=== PATIENT | female | born 1960 | race Asian ===

== ENCOUNTER 2023-08-26 11:26 | Emergency (ER) | payer MEDICAID, SELFPAY ==
[2023-08-26] VITALS (34 sets, daily range): BP systolic 117–180; BP diastolic 57–73; PULSE 77–95; RESP 14–26; TEMP 37.5; O2SAT 97–100; BMI 20.2
--- NOTE | 2023-08-26 11:33 | ED.FALL ---
HPI - Fall General Chief Complaint: Extremity Injury, Upper Stated Complaint: fall Time Seen by Provider: 08/26/23 11:31 History of Present Illness HPI Narrative: 63-year-old woman with a history of hypertension and hyperlipidemia had a mechanical fall while hanging curtains today. She landed on her right elbow with significant pain unable to move her arm after that point. She was neurovascularly intact. She was able to get up and call 911 herself. She describes no other injuries. She has otherwise been healthy and at her baseline with no complaints of recent fevers, cough, chills, chest pain, palpitations, nausea, vomiting, diarrhea, headaches. Related Data Previous Rx's Medication Instructions Recorded oxycodone-acetaminophen 5 mg-325 1 tab PO Q6H PRN pain #14 tabs 08/26/23 mg tablet Allergies Allergy/AdvReac Type Severity Reaction Status Date / Time No Known Drug Allergies Allergy Verified 08/26/23 11:37 Review of Systems Review of Systems Narrative: Pertinent positive and negative findings as per HPI Patient History Medical History Hyperlipidemia Hypertension Social History Smoking Status: Never smoker Exam Initial Vital Signs Initial Vital Signs: Vital Signs Pulse Oximetry 98 08/26/23 11:31 General: Sedated from fentanyl given in route but able to cooperate. Right upper extremity is in a splint. HEENT: Moist mucous membranes, normal sclera with reactive pupils, head is atraumatic, normocephalic Neck: No neck pain Respiratory: Lungs are clear to auscultation, no wheezing no rales no rhonchi. Full and symmetrical air movement Cardiac: Regular rate and rhythm no murmurs no bruits Abdomen: Soft, nontender, good bowel tones, no flank pain, no thoracic or rib pain Skin: Warm and dry, no rashes Neurologic: Grossly neurologically intact with no obvious asymmetries or abnormalities Extremities: Right arm is obviously deformed with excessive pronation and what appears to be dislocated possible fractured elbow. No pain in the shoulder or the wrist Psych: Cooperative, appropriate insight and affect Procedures Orthopedic Joint Reduction Right elbow: Time of procedure: 15:06 Time Out Performed: Yes Side: right Joint Reduction Location: elbow Analgesia: procedural sedation Technique used: traction/counter-traction and direct manipulation Post-reduction neuro exam: intact Post-reduction vascular: intact Post Reduction X-Ray Obtained: Yes Post Reduction X-Ray Results: reduced Splint Applied: Yes Patient Tolerated Procedure: Well Procedural Sedation Time of procedure: 15:07 Consent signed: Yes Time out performed: Yes Indication: fracture/dislocation reduction ASA Class: II Time of Last PO Intake: 09:00 Preparation: awake overnight monitor applied, pulse oximeter, capnometry used, supplemental O2 applied, suction/airway equipment at bedside and IV secured IV Propofol dose (mg): 40 Intraservice time/total sedation time (min): 10 ED Sedation Level: Moderate (Concious) Patient Tolerated Procedure: Well Complications: none Course Orders Ordered: ED Orders 08/26/23 11:37 XR elbow RT min 3V Stat XR wrist RT min 3V Stat 08/26/23 13:57 XR elbow RT min 3V Stat Discontinued Medications Ketorolac Tromethamine (Ketorolac 30 Mg/Ml Vial) 15 mg IV NOW ONE Stop: 08/26/23 14:48 Oxycodone/Acetaminophen (Oxycodone/Acetaminophen 5/325 Tablet) 1 tab PO NOW ONE Stop: 08/26/23 14:48 Propofol (Propofol 200 Mg/20 Ml Vial) 200 mg IV NOW ONE Stop: 08/26/23 12:25 Last Admin: 08/26/23 13:43 Dose: 40 mg Documented By: KHADIJAH Vital Signs Vital signs: Vital Signs - 8 hr 08/26/23 11:31 08/26/23 11:32 08/26/23 11:32 Temperature Pulse Rate 82 Respiratory Rate 20 Blood Pressure 160/70 H Pulse Oximetry 98 98 Oxygen Delivery Method Room Air 08/26/23 11:37 08/26/23 12:00 08/26/23 12:00 Temperature 99.5 F Pulse Rate 83 77 Respiratory Rate 14 Blood Pressure 160/70 H 126/58 L Pulse Oximetry 97 97 Oxygen Delivery Method Room Air 08/26/23 12:30 08/26/23 12:30 08/26/23 12:55 Temperature Pulse Rate 85 Respiratory Rate Blood Pressure 139/63 140/63 Pulse Oximetry 98 Oxygen Delivery Method Room Air 08/26/23 12:55 08/26/23 13:00 08/26/23 13:00 Temperature Pulse Rate 87 82 Respiratory Rate Blood Pressure 141/65 H Pulse Oximetry 98 99 Oxygen Delivery Method 08/26/23 13:05 08/26/23 13:05 08/26/23 13:10 Temperature Pulse Rate 84 Respiratory Rate Blood Pressure 137/63 140/65 Pulse Oximetry 98 Oxygen Delivery Method 08/26/23 13:10 08/26/23 13:15 08/26/23 13:15 Temperature Pulse Rate 89 87 Respiratory Rate 14 21 Blood Pressure 135/60 Pulse Oximetry 98 98 Oxygen Delivery Method 08/26/23 13:20 08/26/23 13:20 08/26/23 13:25 Temperature Pulse Rate 84 Respiratory Rate 20 Blood Pressure 133/62 131/61 Pulse Oximetry 99 Oxygen Delivery Method 08/26/23 13:25 08/26/23 13:30 08/26/23 13:30 Temperature Pulse Rate 83 83 Respiratory Rate 20 20 Blood Pressure 128/60 Pulse Oximetry 98 98 Oxygen Delivery Method 08/26/23 13:35 08/26/23 13:35 08/26/23 13:40 Temperature Pulse Rate 87 Respiratory Rate 22 Blood Pressure 134/63 144/67 H Pulse Oximetry 98 Oxygen Delivery Method 08/26/23 13:40 08/26/23 13:43 08/26/23 13:50 Temperature Pulse Rate 91 H 85 84 Respiratory Rate 17 16 24 Blood Pressure 132/62 Pulse Oximetry 99 98 98 Oxygen Delivery Method 08/26/23 13:50 08/26/23 13:55 08/26/23 13:55 Temperature Pulse Rate 85 Respiratory Rate 22 Blood Pressure 132/62 134/57 L Pulse Oximetry 98 Oxygen Delivery Method 08/26/23 13:56 08/26/23 14:00 08/26/23 14:00 Temperature Pulse Rate 86 Respiratory Rate 14 21 Blood Pressure 130/60 Pulse Oximetry 98 Oxygen Delivery Method 08/26/23 14:05 08/26/23 14:05 08/26/23 14:10 Temperature Pulse Rate 87 Respiratory Rate 21 Blood Pressure 137/63 136/58 L Pulse Oximetry 100 Oxygen Delivery Method 08/26/23 14:10 08/26/23 14:15 08/26/23 14:15 Temperature Pulse Rate 90 91 H Respiratory Rate 22 22 Blood Pressure 144/69 H Pulse Oximetry 99 100 Oxygen Delivery Method 08/26/23 14:20 08/26/23 14:20 Temperature Pulse Rate 92 H Respiratory Rate 24 Blood Pressure 136/61 Pulse Oximetry 100 Oxygen Delivery Method MDM - Fall MDM Narrative Medical decision making narrative: CC: Fall, right elbow injury Complicating co-morbidities: Hypertension hyperlipidemia Data collected from: patient, medics Differential considered: Fracture, dislocation, additional trauma Exam documented above, pertinent findings include: Obvious injury to the right elbow but arm is neurovascularly intact. Remainder of exam is benign suggesting no additional trauma Imaging studies independently reviewed: Initial x-ray shows a posteriorly dislocated elbow with question of a radial head fracture. Postreduction film shows adequate reduction and no obvious fractures but there is significant joint effusion Consultations: Briefly discussed with Dr. Mcdonald to confirm the ER reduction and discharge home was safe and appropriate. He did agree. Treatments: Patient was sedated with propofol. The elbow was easily reduced. She was placed in a posterior splint and a sling. She certainly is going to be tender and until fracture is ruled out we will continue with immobilization. Re-evaluations: Patient is doing well as she is awakened from the sedation. She will be given Toradol and a single Percocet. Right is called Discussion: 63-year-old woman with mechanical fall right elbow dislocation. Due to suspicion for an occult fracture she is placed in a posterior splint and a sling. We will ask her to contact [facility] on Monday for follow up in definitive treatment of her elbow dislocation. We discussed pain control, importance of follow-up and reasons to return to the emergency department. She is recovered nicely after a sedation. Questions are answered and she is safe for discharge Discharge Plan Departure Patient Disposition: Home Clinical Impression: Dislocated elbow Qualifiers: Encounter type: initial encounter Laterality: right Qualified Code(s): S53.104A - Unspecified dislocation of right ulnohumeral joint, initial encounter Fall Qualifiers: Encounter type: initial encounter Qualified Code(s): W19.XXXA - Unspecified fall, initial encounter Instructions: DI for Elbow Dislocation, DI for Moderate Sedation Activity Restrictions/Additional Instructions: Thank you for coming in today You dislocated her right elbow. I was able to put you to sleep for few minutes, but the elbow back in place and put a splint in place as well. The initial x-rays do not suggest a fracture however, elbow fractures can be somewhat subtle. I expect are going to be in quite a bit of pain and I have placed you in a splint as well as a sling. Please keep the splint in place. You can remove the sling for sleeping if that is more comfortable Using 400 mg of ibuprofen (2 [id number] pills) and 1 Tylenol every 6 hours can be very helpful in controlling pain. For severe pain you can use 400 mg of ibuprofen and 1 Percocet. Percocet is a narcotic pain medication and will make you constipated. Do not drive or try to perform any significant cognitive tasks while taking Percocet. Please do take a stool softener every day that you take a Percocet You will need to follow-up with [facility]. Please call their office on Monday at [phone]. Explain that you are in the emergency department over the weekend, you dislocated your right elbow and need to be seen for follow up care. If you have any difficulties, please return to the ER Your elbow is going to be sore and swollen. If you feel like the splint that we placed is becoming too tight you can loosen up the Nelson wrap If you find that you are getting worse or develop any new symptoms, please feel free to return to the emergency department for further evaluation. Prescriptions: New oxycodone-acetaminophen 5-325 mg tablet 1 tab PO Q6H PRN (Reason: pain) Qty: 14 0RF Stand Alone Forms: Patient Portal/API
--- NOTE | 2023-08-26 11:37 | DI.RAD.S_ITS ---
PROCEDURE: XR ELBOW RT MIN 3V INDICATIONS: fall, significant deformity at elbow area TECHNIQUE: 3 views of the elbow were acquired. COMPARISON: None. FINDINGS: Bones: There is a significant elbow dislocation, with the olecranon dislocated posteriorly in relation to the distal humerus. No kelsey associated displaced fracture can be seen. Soft tissues: Soft tissue swelling is seen, with a large joint effusion. IMPRESSION: Significant elbow dislocation, without a definite displaced fracture seen. Following reduction, please consider a CT for further evaluation. Soft tissue swelling, with a large joint effusion. Dictated by: Jan Agosto M.D. on 08/26/2023 at 11:03 Approved by: Jan Agosto M.D. on 08/26/2023 at 11:04
--- NOTE | 2023-08-26 11:37 | DI.RAD.S_ITS ---
PROCEDURE: XR WRIST RT MIN 3V INDICATIONS: fall, significant deformity at elbow area TECHNIQUE: 4 views of the wrist were acquired. COMPARISON: [facility], CR, XR ELBOW RT MIN 3V, 08/26/2023, 11:44. FINDINGS: Bones: No acute appearing fractures or dislocations. No navicular fractures are seen. There is a remote, unfused ulnar styloid fracture fragment. No suspicious bony lesions. Soft tissues: No suspicious soft tissue calcifications. IMPRESSION: No acute displaced fractures are seen. A remote, unfused ulnar styloid fracture fragment. If there is snuffbox tenderness (or other clinical suspicion for a fracture not seen on these images) then a repeat examination would be recommended in 10 to 14 days, following splinting. Dictated by: Jan Agosto M.D. on 08/26/2023 at 11:23 Approved by: Jan Agosto M.D. on 08/26/2023 at 11:24
[2023-08-26] MEDS: propofoL 200 MG/20 ML VIAL IV (13:43)
--- NOTE | 2023-08-26 13:57 | DI.RAD.S_ITS ---
PROCEDURE: XR ELBOW RT MIN 3V INDICATIONS: post reduction TECHNIQUE: 3 views of the elbow were acquired. COMPARISON: [facility], , XR ELBOW RT MIN 3V, 08/26/2023, 11:44. FINDINGS: Bones: The previously seen elbow dislocation has now been relocated. On these images, no kelsey fractures can be seen. Soft tissues: Large joint effusion with soft tissue swelling can be seen. The overlying casting material limits evaluation of fine detail. IMPRESSION: Elbow relocation, without a fracture identified on these images. Large joint effusion with soft tissue swelling noted. Dictated by: Jan Agosto M.D. on 08/26/2023 at 14:02 Approved by: Jan Agosto M.D. on 08/26/2023 at 14:02
--- NOTE | 2023-08-26 13:58 | ED_ITS ---
HPI - General Adult General Chief complaint: Extremity Injury, Upper Stated complaint: fall Time Seen by Provider: 08/26/23 11:31 Source: patient and EMS Mode of arrival: EMS History of Present Illness HPI narrative: 63-year-old woman with a history of hypertension and hyperlipidemia had a mechanical fall while she was trying to hang some curtains landed on her right elbow at an odd position and has been unable to move the arm. She was in a significant amount of pain brought in by ambulance with 100 mics of fentanyl given prior to arrival. The right elbow is obviously deformed but she is neurovascularly intact. She complains of no other injuries. She states she has otherwise been feeling well with no recent fever, cough, chills, nausea, vomiting, diarrhea, abdominal pain, chest pain, shortness for breath. Related Data Previous Rx's Medication Instructions Recorded oxycodone-acetaminophen 5 mg-325 1 tab PO Q6H PRN pain #14 tabs 08/26/23 mg tablet Allergies Allergy/AdvReac Type Severity Reaction Status Date / Time No Known Drug Allergies Allergy Verified 08/26/23 11:37 Review of Systems Review of Systems Narrative: Pertinent positive and negative findings as per HPI Patient History Medical History Hyperlipidemia Hypertension Social History Smoking Status: Never smoker Smoking Status: Never smoker Substance Use Type: does not use Exam Initial Vital Signs Initial Vital Signs: Vital Signs Pulse Oximetry 98 08/26/23 11:31 General: Slightly sedated from the fentanyl given in route. Able to participate with history, able to speak in full sentences. HEENT: Moist mucous membranes, normal sclera with reactive pupils, head is atraumatic Neck: No neck tenderness to palpation Respiratory: Lungs are clear to auscultation, no wheezing no rales no rhonchi. Full and symmetrical air movement Chest: No tenderness to palpation along thoracic spine or with compression of ribcage Cardiac: Regular rate and rhythm no murmurs no bruits Abdomen: Soft, nontender, good bowel tones, no flank pain, no tenderness with palpation of the lumbar spine or pelvic ring Skin: Warm and dry, no rashes Neurologic: Grossly neurologically intact with no obvious asymmetries or abnormalities Extremities: Right elbow appears dislocated with her forearm at an abnormal pronation angle. She is neurovascularly intact Psych: Cooperative, appropriate insight and affect Procedures Orthopedic Joint Reduction Right elbow: Time of procedure: 14:01 Time Out Performed: Yes Side: right Joint Reduction Location: elbow Analgesia: procedural sedation Technique used: traction/counter-traction and direct manipulation Post-reduction neuro exam: intact Post-reduction vascular: intact Post Reduction X-Ray Obtained: Yes Post Reduction X-Ray Results: reduced Splint Applied: Yes Patient Tolerated Procedure: Well Procedural Sedation Time of procedure: 14:01 Consent signed: Yes Time out performed: Yes Indication: fracture/dislocation reduction ASA Class: II Mallampati Airway Classification: Class II Time of Last PO Intake: 09:00 Preparation: eligibility and occupancy interviewer applied, pulse oximeter, capnometry used, supplemental O2 applied, suction/airway equipment at bedside and IV secured IV Propofol dose (mg): 40 Intraservice time/total sedation time (min): 10 ED Sedation Level: Moderate (Concious) Patient Tolerated Procedure: Well Complications: none Course Orders Ordered: ED Orders 08/26/23 11:37 XR elbow RT min 3V Stat XR wrist RT min 3V Stat 08/26/23 13:57 XR elbow RT min 3V Stat Discontinued Medications Ketorolac Tromethamine (Ketorolac 30 Mg/Ml Vial) 15 mg IV NOW ONE Stop: 08/26/23 14:48 Last Admin: 08/26/23 15:06 Dose: 15 mg Documented By: KHADIJAH Oxycodone/Acetaminophen (Oxycodone/Acetaminophen 5/325 Tablet) 1 tab PO NOW ONE Stop: 08/26/23 14:48 Last Admin: 08/26/23 15:07 Dose: 1 tab Documented By: KHADIJAH Propofol (Propofol 200 Mg/20 Ml Vial) 200 mg IV NOW ONE Stop: 08/26/23 12:25 Last Admin: 08/26/23 13:43 Dose: 40 mg Documented By: KHADIJAH Vital Signs Vital signs: Vital Signs - 8 hr 08/26/23 11:31 08/26/23 11:32 08/26/23 11:32 Temperature Pulse Rate 82 Respiratory Rate 20 Blood Pressure 160/70 H Pulse Oximetry 98 98 Oxygen Delivery Method Room Air 08/26/23 11:37 08/26/23 12:00 08/26/23 12:00 Temperature 99.5 F Pulse Rate 83 77 Respiratory Rate 14 Blood Pressure 160/70 H 126/58 L Pulse Oximetry 97 97 Oxygen Delivery Method Room Air 08/26/23 12:30 08/26/23 12:30 08/26/23 12:55 Temperature Pulse Rate 85 Respiratory Rate Blood Pressure 139/63 140/63 Pulse Oximetry 98 Oxygen Delivery Method Room Air 08/26/23 12:55 08/26/23 13:00 08/26/23 13:00 Temperature Pulse Rate 87 82 Respiratory Rate Blood Pressure 141/65 H Pulse Oximetry 98 99 Oxygen Delivery Method 08/26/23 13:05 08/26/23 13:05 08/26/23 13:10 Temperature Pulse Rate 84 Respiratory Rate Blood Pressure 137/63 140/65 Pulse Oximetry 98 Oxygen Delivery Method 08/26/23 13:10 08/26/23 13:15 08/26/23 13:15 Temperature Pulse Rate 89 87 Respiratory Rate 14 21 Blood Pressure 135/60 Pulse Oximetry 98 98 Oxygen Delivery Method 08/26/23 13:20 08/26/23 13:20 08/26/23 13:25 Temperature Pulse Rate 84 Respiratory Rate 20 Blood Pressure 133/62 131/61 Pulse Oximetry 99 Oxygen Delivery Method 08/26/23 13:25 08/26/23 13:30 08/26/23 13:30 Temperature Pulse Rate 83 83 Respiratory Rate 20 20 Blood Pressure 128/60 Pulse Oximetry 98 98 Oxygen Delivery Method 08/26/23 13:35 08/26/23 13:35 08/26/23 13:40 Temperature Pulse Rate 87 Respiratory Rate 22 Blood Pressure 134/63 144/67 H Pulse Oximetry 98 Oxygen Delivery Method 08/26/23 13:40 08/26/23 13:43 08/26/23 13:50 Temperature Pulse Rate 91 H 85 84 Respiratory Rate 17 16 24 Blood Pressure 132/62 Pulse Oximetry 99 98 98 Oxygen Delivery Method 08/26/23 13:50 08/26/23 13:55 08/26/23 13:55 Temperature Pulse Rate 85 Respiratory Rate 22 Blood Pressure 132/62 134/57 L Pulse Oximetry 98 Oxygen Delivery Method 08/26/23 13:56 08/26/23 14:00 08/26/23 14:00 Temperature Pulse Rate 86 Respiratory Rate 14 21 Blood Pressure 130/60 Pulse Oximetry 98 Oxygen Delivery Method 08/26/23 14:05 08/26/23 14:05 08/26/23 14:10 Temperature Pulse Rate 87 Respiratory Rate 21 Blood Pressure 137/63 136/58 L Pulse Oximetry 100 Oxygen Delivery Method 08/26/23 14:10 08/26/23 14:15 08/26/23 14:15 Temperature Pulse Rate 90 91 H Respiratory Rate 22 22 Blood Pressure 144/69 H Pulse Oximetry 99 100 Oxygen Delivery Method 08/26/23 14:20 08/26/23 14:20 08/26/23 14:25 Temperature Pulse Rate 92 H 91 H Respiratory Rate 24 23 Blood Pressure 136/61 Pulse Oximetry 100 99 Oxygen Delivery Method 08/26/23 14:25 08/26/23 14:30 08/26/23 14:31 Temperature Pulse Rate 92 H Respiratory Rate 22 Blood Pressure 131/60 166/73 H Pulse Oximetry 99 Oxygen Delivery Method 08/26/23 14:31 08/26/23 14:34 08/26/23 14:34 Temperature Pulse Rate 92 H 91 H Respiratory Rate 24 23 Blood Pressure 135/60 Pulse Oximetry 100 99 Oxygen Delivery Method 08/26/23 14:35 08/26/23 14:35 08/26/23 14:40 Temperature Pulse Rate 90 95 H Respiratory Rate 21 26 H Blood Pressure 134/63 Pulse Oximetry 99 99 Oxygen Delivery Method 08/26/23 14:40 08/26/23 14:45 08/26/23 14:45 Temperature Pulse Rate 93 H Respiratory Rate 20 Blood Pressure 180/70 H 164/67 H Pulse Oximetry 99 Oxygen Delivery Method 08/26/23 14:50 08/26/23 14:50 08/26/23 15:00 Temperature Pulse Rate 93 H 88 Respiratory Rate 22 20 Blood Pressure 142/67 H Pulse Oximetry 99 99 Oxygen Delivery Method 08/26/23 15:00 08/26/23 15:05 08/26/23 15:05 Temperature Pulse Rate 85 Respiratory Rate 21 Blood Pressure 154/66 H 117/69 Pulse Oximetry 98 Oxygen Delivery Method Medical Decision Making MDM Narrative Medical decision making narrative: CC: 63-year-old woman with fall landing on her right elbow Complicating co-morbidities: Hypertension hyperlipidemia Data collected from: patient Differential considered: Fracture, dislocation, trauma at other sites Exam documented above, pertinent findings include: Dislocated elbow in full extension, neurovascularly intact. Significant pain. No tenderness to the wrist or proximal humerus. No suggestion of other injuries on remainder of exam Imaging studies: Wrist x-ray is unremarkable Elbow x-ray shows posterior elbow dislocation with a question of a small radial head fracture on my read. Postreduction film shows appropriate reduction, and I see no evidence of radial head fracture at this time Consultations: Briefly reviewed with Dr. Mcdonald to confirm that ER sedation and elbow reduction with outpatient follow up would be appropriate. Treatments: Propofol sedation, elbow was reduced with minimal difficulty. Because there was a concern for possible radial head fracture she was placed in a splint and a sling. Re-evaluations: Patient tolerated the sedation, reduction and splinting well. Discussion: 63-year-old woman with fall and a right posterior elbow dislocation reduced easily. She is placed in a splint sling. Given instructions on follow up with outpatient orthopedic surgery and importance of follow-up. We discussed pain management, please see recommendations below. Questions were answered she is hemodynamically stable appropriately recovered after her sedation and safe for discharge home Discharge Plan Departure Patient Disposition: Home Clinical Impression: Dislocated elbow Qualifiers: Encounter type: initial encounter Laterality: right Qualified Code(s): S53.104A - Unspecified dislocation of right ulnohumeral joint, initial encounter Fall Qualifiers: Encounter type: initial encounter Qualified Code(s): W19.XXXA - Unspecified fall, initial encounter Instructions: DI for Elbow Dislocation, DI for Moderate Sedation Activity Restrictions/Additional Instructions: Thank you for coming in today You dislocated her right elbow. I was able to put you to sleep for few minutes, but the elbow back in place and put a splint in place as well. The initial x-rays do not suggest a fracture however, elbow fractures can be somewhat subtle. I expect are going to be in quite a bit of pain and I have placed you in a splint as well as a sling. Please keep the splint in place. You can remove the sling for sleeping if that is more comfortable Using 400 mg of ibuprofen (2 [id number] pills) and 1 Tylenol every 6 hours can be very helpful in controlling pain. For severe pain you can use 400 mg of ibuprofen and 1 Percocet. Percocet is a narcotic pain medication and will make you constipated. Do not drive or try to perform any significant cognitive tasks while taking Percocet. Please do take a stool softener every day that you take a Percocet You will need to follow-up with [facility]. Please call their office on Monday at [phone]. Explain that you are in the emergency department over the weekend, you dislocated your right elbow and need to be seen for follow up care. If you have any difficulties, please return to the ER Your elbow is going to be sore and swollen. If you feel like the splint that we placed is becoming too tight you can loosen up the Nelson wrap If you find that you are getting worse or develop any new symptoms, please feel free to return to the emergency department for further evaluation. Prescriptions: New oxycodone-acetaminophen 5-325 mg tablet 1 tab PO Q6H PRN (Reason: pain) Qty: 14 0RF Stand Alone Forms: Patient Portal/API, Work Release Note
[2023-08-26] MEDS: KETOROLAC 30 MG/ML VIAL 15 MG IV (15:06)
[2023-08-26] MEDS: OXYCODONE/ACETAMINOPHEN 5/325 TABLET 1 TAB PO (15:07)
== END 2023-08-26 15:33 | disposition home or self-care (01) ==
PROVIDERS: Emergency Provider Emergency Medicine
DX: S53.104A Unspecified dislocation of right ulnohumeral joint, initial encounter (principal); W19.XXXA Unspecified fall, initial encounter
CPT/HCPCS: 24600; 73080; 73110; 96374; 99284; 99285; J1885; J2704

== ENCOUNTER → 2024-09-24 10:24 | Outpatient (CLI) | payer BC, SELFPAY ==
--- NOTE | 2024-09-24 10:46 | DI.CT.S_ITS ---
PROCEDURE: CT ABDOMEN RENAL PROTOCOL INDICATIONS: XGP TECHNIQUE: Optional 5 mm thick noncontrast images acquired from the diaphragm to the iliac crests. After the administration of intravenous contrast, 5 mm thick images again acquired from the diaphragm to the iliac crests in the arterial and urographic phases. 5 mm thick coronal and sagittal reformats were then acquired. For radiation dose reduction, the following was used: automated exposure control, adjustment of mA and/or kV according to patient size. COMPARISON: None. FINDINGS: Image quality: Diagnostic Lower chest: Unremarkable lung bases Liver: Unremarkable Gallbladder and biliary system: Probable fundal adenomyomatosis. No biliary ductal dilation. Pancreas: No ductal dilation Spleen: Nonenlarged Adrenals: No discrete nodules Kidneys: No solid renal mass. Staghorn calculus involving the left kidney, largest aggregate extending from the renal pelvis and multiple calices measures up to 4.3 x 2.7 cm. The proximal ureter is mildly dilated and thick walled. There is significantly altered parenchymal enhancement, with gas, moderate surrounding edema, and adjacent fascial thickening. Adjacent pigtail drains are noted, terminating in the retroperitoneal and renal capsule adjacent to the inferior pole. Vessels and lymph nodes: Prominent retroperitoneal lymph nodes, probably reactive for example left para-aortic node measures 0.8 cm in short axis. Main portal vein is patent. No abdominal aortic aneurysm. Atherosclerotic calcifications are seen. Bowel and peritoneum: No small bowel obstruction. No drainable ascites or abscess. Body wall: Unremarkable Bones: No suspicious focal bone lesion. IMPRESSION: Staghorn left renal calculus with significant surrounding renal soft tissue thickening, inflammation, and edema. This extends into the ureter and pararenal fascia. 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 There are 2 pigtail drains that terminate in the retroperitoneum and the renal capsule adjacent to the left renal inferior pole. No significant pararenal fluid collection identified. No significant abnormality seen in the right kidney. Mildly enlarged retroperitoneal lymph nodes, possibly reactive, attention on follow-up. Other findings above. Dictated by: Pardeep Collazo M.D. on 09/24/2024 at 14:08 Approved by: Pardeep Collazo M.D. on 09/24/2024 at 14:13
[2024-09-24 11:10] LABS: Estimated Glomerular Filt Rate 55 mL/min (>60)
== END ==
PROVIDERS: PCP Nurse Practitioner; Referring Provider Urology; Visit Provider Urology
DX: N11.8 Other chronic tubulo-interstitial nephritis (principal); N20.0 Calculus of kidney; R59.0 Localized enlarged lymph nodes
CPT/HCPCS: 36415; 74170; 82565; Q9967

== ENCOUNTER 2024-09-28 11:54 | Emergency (ER) | payer BC, SELFPAY ==
[2024-09-28] VITALS (15 sets, daily range): BP systolic 113–152; BP diastolic 56–72; PULSE 77–110; RESP 16–20; TEMP 36.4; O2SAT 94–100; BMI 18.9
--- NOTE | 2024-09-28 12:11 | DI.RAD.S_ITS ---
PROCEDURE: XR CHEST 1V INDICATIONS: suspected sepsis TECHNIQUE: One view of the chest was acquired. COMPARISON: [facility], CT, CT ABDOMEN RENAL PROTOCOL, 09/24/2024, 11:51. FINDINGS: Surgical changes and devices: None. Lungs and pleura: Lungs are clear. No pleural effusions or pneumothorax. Mediastinum: Mediastinal contours appear normal. Heart size is normal. Bones and chest wall: No suspicious bony lesions. Overlying soft tissues appear unremarkable. IMPRESSION: No focal infiltrates are seen. No acute cardiopulmonary abnormality is seen. Dictated by: Jan Agosto M.D. on 09/28/2024 at 11:53 Approved by: Jan Agosto M.D. on 09/28/2024 at 11:53
--- NOTE | 2024-09-28 12:11 | DI.CT.S_ITS ---
PROCEDURE: CT ABDOMEN PELVIS W CON INDICATIONS: Pain/kidney drain present/suspected increase of infection TECHNIQUE: After the administration of intravenous contrast, axial sections acquired from the lung bases to the pubic symphysis. Coronal and sagittal reformats were performed. For radiation dose reduction, the following was used: automated exposure control, adjustment of mA and/or kV according to patient size. COMPARISON: [facility], CT, CT ABDOMEN RENAL PROTOCOL, 09/24/2024, 11:51. FINDINGS: Image quality: Diagnostic. Lower Chest: No significant findings. ABDOMEN: Liver: No solid mass. Gallbladder: There is a the tip central 2.5 cm rim calcified gallstone. No additional CT findings of cholecystitis are seen. Biliary ducts: No biliary dilation. Pancreas: No ductal dilation. Spleen: Size is within normal limits. Adrenal Glands: No adrenal nodules. Kidneys and Ureters: The left kidney demonstrates a large staghorn calculus, measuring 6.5 cm and measuring 1000 Hounsfield units. The left kidney is poorly functional and poorly enhances. There is mild left-sided perinephric fat stranding. There is [id number] left-sided hydroureter and hydronephrosis. Distally, the left ureter appears thick wall and hyperenhancing. Adjacent to the left kidney, there are 2 pigtail drains seen, which are not significantly changed compared to the recent prior CT. The right kidney demonstrates no significant abnormality. Stomach and Bowel: Moderate wall thickening can be seen within the splenic flexure of the colon. The colon is otherwise unremarkable. No dilated loops of small bowel are seen. A normal appendix is noted. Peritoneum: No abnormal intraperitoneal fluid. No free air. Ventral Wall: No significant ventral hernia. Abdominal Nodes: Borderline prominent retroperitoneal lymph nodes are again seen. Vessels: Aorta and inferior vena cava are normal in size. PELVIS: Pelvic Organs: No adnexal masses are seen on either side. Bladder: No bladder wall thickening, accounting for underdistention. Pelvic Nodes: No enlarged lymph nodes. Miscellaneous: No inguinal hernias are seen. Bones: No aggressive osseous abnormality. IMPRESSION: Abnormal left kidney, with a large staghorn calculus. The left kidney is poorly functional, with a delayed nephrogram. The left ureter is abnormal, with dilatation and a hyperenhancing wall. Left sided perinephric fat stranding can be seen, without abscess. 2 perinephric percutaneous drains can be seen. Focal wall thickening can be seen involving the descending colon, which is regarded to be inflamed, secondary to the adjacent left kidney infection. Stable borderline prominent retroperitoneal lymph nodes can be seen. Potential rim calcified gallstone, although this may simply be artifactual. Dictated by: Jan Agosto M.D. on 09/28/2024 at 14:49 Approved by: Jan Agosto M.D. on 09/28/2024 at 14:55
--- NOTE | 2024-09-28 12:34 | EKG_ITS ---
[address] [address] Test Date: 2024-09-28 Pat Name: Dannielle Chan Department: [facility] Room: Gender: Female Lump Inspector: PATRICIA : 1960 Requested By: Order Number: [id number] Reading MD: Ricardo Tejeda MD Measurements Intervals [place] Rate: 98 P: 65 [place]: 144 QRS: 16 QRSD: 66 T: 52 QT: 328 QTc: 418 Interpretive Statements Normal sinus rhythm Electronically Signed On 09-29-2024 8:51:18 PDT by Ricardo Tejeda MD
[2024-09-28] MEDS: SODIUM CHLORIDE 0.9% 1,000 ML 1000 ML IV (13:33)
[2024-09-28 13:35] LABS: Add Manual Diff / Slide Review NO; Basophils Absolute Auto 100 /uL (0-100); Basophils Percent Auto 0.6 % (0-2); Eosinophils Absolute Auto 100 /uL (0-450); Eosinophils Percent Auto 1.1 % (2-4); Hemoglobin 11.3 g/dL (12.0-16.0); Lymphocytes Absolute Auto 1100 /uL (1100-4500); Lymphocytes Percent Auto 11.6 % (25-40); Mean Corpuscular HGB Conc 33.3 % (30-36); Mean Corpuscular Hemoglobin 27.2 PG (26-34); Mean Corpuscular Volume 81.8 fL (80-100); Monocytes Absolute Auto 500 /uL (0-900); Monocytes Percent Auto 5.8 % (3-14); Neutrophils Absolute Auto 7400 /uL (1500-7000); Neutrophils Percent Auto 80.9 % (50-75); Platelet Count 411 X10^3/uL (150-400); Red Blood Cell Count 4.16 X10^6/uL (4.0-5.2); Red Cell Distribution Width 17.5 % (11.6-14.8); White Blood Cell Count 9.2 X10^3/uL (4.5-11.0)
[2024-09-28 13:43] LABS: RBC Urine 0-1/HPF (0-5/HPF); Urine Volume 10mL (spun); WBC Urine 30-100/HPF (0-5/HPF)
[2024-09-28 13:44] LABS: Bacteria Urine Moderate (10-30); Squamous Epithelial Cell Urine 0-1 /HPF (0-5/HPF)
[2024-09-28 13:44] LABS: Lactate (Lactic Acid) 1.7 mmol/L (0.7-2.1); PTT Partial Thromboplastin Tim 28 SECONDS (25.1-36.5)
[2024-09-28 13:45] LABS: Alanine Aminotransferase 20 IU/L (<35); Albumin 4.2 g/dL (3.5-5.0); Albumin Globulin Ratio 0.8 (1.0-2.8); Alkaline Phosphatase 97 U/L (38-126); Aspartate Aminotransferase 22 IU/L (14-36); BUN Creatinine Ratio 12.6 (6-22); Bilirubin Total 0.3 mg/dL (0.2-1.3); Blood Urea Nitrogen 14 mg/dL (7-17); Calcium 9.5 mg/dL (8.4-10.2); Carbon Dioxide 28 mmol/L (22-32); Chloride 101 mmol/L (98-107); Estimated Glomerular Filt Rate 55 mL/min (>60); Glucose 107 mg/dL (80-110); HEMOLYSIS < 15 (0-50); Lipase 101 U/L (23-300); Potassium 3.9 mmol/L (3.4-5.1); Sodium 139 mmol/L (137-145); Total Protein 9.2 g/dL (6.3-8.2)
[2024-09-28 14:02] LABS: Procalcitonin 0.058 ng/mL (<0.5)
--- NOTE | 2024-09-28 16:58 | ED_ITS ---
HPI - Back Pain/Injury General Chief Complaint: Back Pain/Injury Stated Complaint: lt side kidney drain hurting Time Seen by Provider: 09/28/24 16:47 Source: patient Mode of arrival: Ambulatory Limitations: no limitations History of Present Illness HPI Narrative: 64-year-old female with known staghorn calculi on the left with bilateral drains placed August 01, patient is scheduled to have left nephrectomy on October 17. She states she started having left flank pain about a week ago has been intermittent but becoming more constant she noticed her drain has had some discolored drainage. Was only had about 10 mL or less today had about 30 mL out a drain 1. Stated looked a little bit more brownish and very sticky, drain 2. Had about 10 mL was also little discolored. She states she has not had any fevers no chills no chest pain or shortness of breath. No nausea or vomiting. No other urinary symptoms. No issues with bowel movements. Patient states she recently finished amoxicillin prescription she was not on a daily prescriptions. Denies other surgeries. No known drug allergies. No tobacco, alcohol or recreational drugs. Following with Dr. Addison with Urology at [facility]. Related Data Previous Rx's Medication Instructions Recorded oxycodone-acetaminophen 5 mg-325 1 tab PO Q6H PRN pain #14 tabs 08/26/23 mg tablet ciprofloxacin HCl 500 mg tablet 500 mg PO BID #20 tabs 09/28/24 Allergies Allergy/AdvReac Type Severity Reaction Status Date / Time No Known Drug Allergies Allergy Verified 08/26/23 11:37 Review of Systems Review of Systems ROS Unobtainable: All systems reviewed & are unremarkable except as noted in HPI and below Patient History Medical History Hyperlipidemia Hypertension Social History Smoking Status: Never smoker Smoking Status: Never smoker Exam Narrative Exam Narrative: GENERAL: Alert and oriented x three, well-appearing female in mild distress HEENT: Head normocephalic, atraumatic, EOMI, pupils reactive, face symmetric, moist mucous membranes NECK: Supple, full range of motion CARDIOVASCULAR: Regular rate and rhythm without murmurs, rubs or gallops. RESPIRATORY: Breath sounds equal bilaterally, no wheezes rales or rhonchi. ABDOMEN: Soft, nontender. Normoactive bowel sounds all 4 quadrants. No guarding or rebound, rigidity, no mass : No CVA tenderness, nontender, patient has 2 CAROLANN drains present there is a scant amount of discharge on the dressing that is about 2-day-old but no other drainage surrounding. There is no warmth erythema or swelling. Areas nontender to touch. Patient's drain 1. Has some yellow discolored fluid with sediment, drain 2. Has a little bit more clear. EXTREMITIES: Normal range of motion, no clubbing or edema. Neurovascularly intact NEUROLOGICAL: Cranial nerves II through XII grossly intact. Moving all extremities SKIN: Warm, dry, no petechiae, no rashes or lesions. Initial Vital Signs Initial Vital Signs: Vital Signs Temperature 97.5 F L 09/28/24 11:58 Pulse Rate 110 H 09/28/24 11:58 Respiratory Rate 18 09/28/24 11:58 Blood Pressure 135/67 09/28/24 11:58 Pulse Oximetry 100 09/28/24 11:58 Oxygen Delivery Method Room Air 09/28/24 11:58 Course Orders Ordered: Discontinued Medications Sodium Chloride (Normal Saline 0.9%) 1,000 mls @ 1,000 mls/hr IV BOLUS ONE Stop: 09/28/24 13:10 Last Infusion: 09/28/24 14:23 Dose: Infused Documented By: Admin: 09/28/24 13:33 Dose: 1,000 mls/hr Documented By: JAVIER Ciprofloxacin (Cipro) 400 mg in 200 mls @ 200 mls/hr IV NOW ONE Stop: 09/28/24 18:24 Last Infusion: 09/28/24 19:19 Dose: Infused Documented By: Admin: 09/28/24 18:08 Dose: 200 mls/hr Documented By: DANIEL Ondansetron HCl (Ondansetron 4 Mg/2 Ml Inj) 4 mg IV NOW PRN PRN Reason: Nausea And Vomiting Ondansetron HCl (Ondansetron 4 Mg Odt) 4 mg SL NOW PRN PRN Reason: Nausea And Vomiting Vital Signs Vital signs: Vital Signs - 8 hr 09/28/24 11:58 09/28/24 12:38 09/28/24 13:00 Temperature 97.5 F L Pulse Rate 110 H 101 H 94 H Respiratory Rate 18 19 Blood Pressure 135/67 Pulse Oximetry 100 99 97 Oxygen Delivery Method Room Air 09/28/24 13:30 09/28/24 14:00 09/28/24 14:49 Temperature Pulse Rate 93 H 94 H 92 H Respiratory Rate 19 17 20 Blood Pressure Pulse Oximetry 95 98 95 Oxygen Delivery Method 09/28/24 14:49 09/28/24 15:04 09/28/24 16:58 Temperature Pulse Rate 92 H 87 Respiratory Rate 20 Blood Pressure 152/72 H Pulse Oximetry 94 Oxygen Delivery Method 09/28/24 16:59 09/28/24 16:59 09/28/24 17:00 Temperature Pulse Rate 87 Respiratory Rate 18 Blood Pressure 130/62 129/56 L Pulse Oximetry 97 Oxygen Delivery Method 09/28/24 17:00 Temperature Pulse Rate 84 Respiratory Rate 16 Blood Pressure Pulse Oximetry 98 Oxygen Delivery Method MDM - Back Pain/Injury Lab Data 09/28/24 13:20 09/28/24 13:20 Labs: Lab Results 09/28/24 09/28/24 Range/Units 13:15 13:20 WBC 9.2 (4.5-11.0) X10^3/uL RBC 4.16 (4.0-5.2) X10^6/uL Hgb 11.3 L (12.0-16.0) g/dL Hct 34.0 L (36-46) % MCV 81.8 (80-100) fL MCH 27.2 (26-34) PG MCHC 33.3 (30-36) % RDW 17.5 H (11.6-14.8) % Plt Count 411 H (150-400) X10^3/uL Neut % (Auto) 80.9 H (50-75) % Lymph % (Auto) 11.6 L (25-40) % Gaines % (Auto) 5.8 (3-14) % Eos % (Auto) 1.1 L (2-4) % Baso % (Auto) 0.6 (0-2) % Neut # (Auto) 7400 H (5598-0524) /uL Lymph # (Auto) 1100 (5946-4457) /uL Gaines # (Auto) 500 (0-900) /uL Eos # (Auto) 100 (0-450) /uL Baso # (Auto) 100 (0-100) /uL PT 11.0 (9.4-12.5) SECONDS INR 1.0 (0.9-1.3) APTT 28 (25.1-36.5) SECONDS Sodium 139 (137-145) mmol/L Potassium 3.9 (3.4-5.1) mmol/L Chloride 101 (98-107) mmol/L Carbon Dioxide 28 (22-32) mmol/L BUN 14 (7-17) mg/dL Creatinine 1.11 H (0.52-1.04) mg/dL Estimated GFR 55 L (>60) mL/min BUN/Creatinine Ratio 12.6 (6-22) Glucose 107 (80-110) mg/dL Lactate 1.7 (0.7-2.1) mmol/L Calcium 9.5 (8.4-10.2) mg/dL Total Bilirubin 0.3 (0.2-1.3) mg/dL AST 22 (14-36) IU/L ALT 20 (<35) IU/L Alkaline Phosphatase 97 (38-126) U/L Total Protein 9.2 H (6.3-8.2) g/dL Albumin 4.2 (3.5-5.0) g/dL Globulin 5.0 H (1.7-4.1) g/dL Albumin/Globulin Ratio 0.8 L (1.0-2.8) Lipase 101 (23-300) U/L Procalcitonin 0.058 (<0.5) ng/mL Urine RBC 0-1/hpf (0-5/HPF) Urine WBC 30-100/hpf H (0-5/HPF) Ur Squamous Epith Cells 0-1 /hpf (0-5/HPF) Urine Bacteria Moderate (10-30) H (None) Vol Urine Centrifuged 10ml (spun) Urine Dip Bedside Urine Glucose Negative Bedside Urine Bilirubin - Negative Bedside Urine Ketone - Negative Urine Specific [place] 1.010 Bedside Urine Occult Blood ++ Bedside Urine pH 6.0 Bedside Urine Protein - Negative Bedside Urine Urobilinogen - Negative Bedside Urine Nitrite - Negative Bedside Urine Leukocytes +++ 500 Esterase ECG Data Attestation: I personally reviewed and interpreted this ECG as follows: Interpretation: Sinus rhythm rate of 98 ND 144 QRS is 66 QTC of [address] elevation depression noted. MDM Narrative Medical decision making narrative: Labs show white count of 9.2 hemoglobin 11.3 platelets of 411. Coags are negative creatinine is 1.11 was 1.1 on 09/24/2024. No other labs for comparison. Patient's electrolytes are normal glucose is 107 total protein is 9.2 globulin 5. Procalcitonin 0.058 with a lactate of 1.7. Point of care urine shows 500+ leukocyte esterase no nitrates positive for blood. Urine shows 1 red cell 30-100 white cells 1 squamous moderate bacteria. Chest x-ray shows no acute CT abdomen pelvis with contrast shows 2.5 cm rim calcified gallstone no additional findings of cholecystitis left kidney demonstrates a large staghorn calculus measuring 6.5 cm measuring a 1000 Hounsfield units left kidney is poorly functional a poorly enhances mild left side perinephric stranding there was [id number] left-sided hydroureter and hydronephrosis. Distally the left ureter appears thick-walled and hyperenhancing adjacent to left kidney there is 2 pigtail drain which are not significantly changed compared to prior CT right kidney demonstrates no change moderate wall thickening seen within the splenic flexure of the colon borderline prominent retroperitoneal lymph nodes seen again. No abscess appreciated. 64-year-old female with drain in the left kidney placed August 02, 2024 for kidney infection supposed to have left kidney removed October [address] [facility]. Presented with a increased pain in the back and change in smell of drainage in the last couple days not on any antibiotics currently. Spoke with Dr. Lopez, urology for [facility] reviewed findings from today patient had CT 4 days ago with a have for comparison in her renal function is the same as 4 days ago I do not have her prior cultures she was with plan for antibiotics okay with ciprofloxacin asked that we send fluid culture from the drain. Discussed findings patient she feels comfortable with return she was nontoxic, well-appearing labs are overall appropriate with the no signs of abscess on imaging discussed low threshold to return and to call her urology team to follow up on Monday. Discharge Plan Departure Patient Disposition: Home Clinical Impression: UTI (urinary tract infection), Staghorn calculus Activity Restrictions/Additional Instructions: Please follow up with Urology, call Monday morning to let them know that you have an urine culture, blood cultures as well as culture from your drain pending. These typically take 48-72 hours to result if they show resistance to the antibiotics prescribed you will be contacted. I did speak with the on-call urologist today. Take oral antibiotics until completed prescription was sent to [facility] in [place]. Please return for any fevers, increasing abdominal back or flank pain, any vomiting, any difficulty with urination if you are having increasing purulent drainage or other new Prescriptions: New ciprofloxacin HCl 500 mg tablet 500 mg PO BID Qty: 20 0RF No Action oxycodone-acetaminophen 5-325 mg tablet 1 tab PO Q6H PRN (Reason: pain) Qty: 14 0RF Referrals: Sagrario Sprague ARNP [Primary Care Provider] - Stand Alone Forms: Patient Portal/API/Survey
[2024-09-28] MEDS: CIPROFLOXACIN 400 MG/200 ML PIGGYBACK 200 MG IV (18:08)
== END 2024-09-28 19:25 | disposition home or self-care (01) ==
PROVIDERS: Emergency Provider Emergency Medicine; PCP Nurse Practitioner
DX: N20.0 Calculus of kidney (principal); N39.0 Urinary tract infection, site not specified
CPT/HCPCS: 36415; 71045; 74177; 80053; 81003; 81015; 83605; 83690; 84145; 85025; 85610; 85730; 87040; 87070; 87075; 87077; 87086; 87186; 87205; 93005; 93010; 96361; 96365; 99284; J0744; Q9967

== ENCOUNTER 2024-10-31 20:35 | Emergency (ER) | payer BC, SELFPAY ==
[2024-10-31] VITALS (8 sets, daily range): BP systolic 133–154; BP diastolic 60–65; PULSE 109–121; RESP 18; TEMP 37.7–39.1; O2SAT 96–99; BMI 19.1
--- NOTE | 2024-10-31 21:05 | EKG_ITS ---
[address] [address] Test Date: 2024-10-31 Pat Name: Dannielle Chan Department: Room: Gender: Female Mutuel Teller: KEN ODESSA : 1960 Requested By: Order Number: [id number] Reading MD: Jimenez Dallas Measurements Intervals [place] Rate: 111 P: 56 [place]: 126 QRS: 18 QRSD: 66 T: 48 QT: 302 QTc: 410 Interpretive Statements Sinus tachycardia Electronically Signed On 11-01-2024 7:49:33 PDT by Jimenez Dallas
--- NOTE | 2024-10-31 21:05 | DI.RAD.S_ITS ---
PROCEDURE: XR CHEST 1V INDICATIONS: suspected sepsis TECHNIQUE: One view of the chest was acquired. COMPARISON: [facility], CR, XR CHEST 1V, 09/28/2024, 12:18. FINDINGS: Surgical changes and devices: None. Lungs and pleura: Lungs are clear. No pleural effusions or pneumothorax. Mediastinum: Mediastinal contours appear normal. Heart size is normal. Bones and chest wall: No suspicious bony lesions. Overlying soft tissues appear unremarkable. IMPRESSION: No acute cardiopulmonary pathology. Dictated by: Abraham Fang M.D. on 10/31/2024 at 21:33 Approved by: Abraham Fang M.D. on 10/31/2024 at 21:33
[2024-10-31 21:27] LABS: Add Manual Diff / Slide Review NO; Basophils Absolute Auto 100 /uL (0-100); Basophils Percent Auto 0.5 % (0-2); Eosinophils Absolute Auto 100 /uL (0-450); Eosinophils Percent Auto 0.4 % (2-4); Hematocrit 30.6 % (36-46); Hemoglobin 10.2 g/dL (12.0-16.0); Lymphocytes Absolute Auto 1300 /uL (1100-4500); Lymphocytes Percent Auto 5.7 % (25-40); Mean Corpuscular HGB Conc 33.2 % (30-36); Mean Corpuscular Hemoglobin 26.8 PG (26-34); Mean Corpuscular Volume 80.7 fL (80-100); Monocytes Absolute Auto 1300 /uL (0-900); Monocytes Percent Auto 5.7 % (3-14); Neutrophils Absolute Auto 19300 /uL (1500-7000); Neutrophils Percent Auto 87.7 % (50-75); Platelet Count 707 X10^3/uL (150-400); Red Blood Cell Count 3.79 X10^6/uL (4.0-5.2); Red Cell Distribution Width 14.9 % (11.6-14.8)
[2024-10-31 21:29] LABS: INR 1.1 (0.9-1.3); Prothrombin Time 12.2 SECONDS (9.4-12.5)
[2024-10-31 21:32] LABS: PTT Partial Thromboplastin Tim 33 SECONDS (25.1-36.5)
[2024-10-31 21:33] LABS: Lactate (Lactic Acid) 1.1 mmol/L (0.7-2.1)
[2024-10-31 21:34] LABS: Alanine Aminotransferase 18 IU/L (<35); Albumin 4.1 g/dL (3.5-5.0); Albumin Globulin Ratio 0.9 (1.0-2.8); Alkaline Phosphatase 107 U/L (38-126); Aspartate Aminotransferase 22 IU/L (14-36); BUN Creatinine Ratio 12.9 (6-22); Bilirubin Total 0.4 mg/dL (0.2-1.3); Blood Urea Nitrogen 13 mg/dL (7-17); Calcium 9.3 mg/dL (8.4-10.2); Carbon Dioxide 24 mmol/L (22-32); Chloride 101 mmol/L (98-107); Estimated Glomerular Filt Rate > 60 mL/min (>60); Globulin 4.6 g/dL (1.7-4.1); Glucose 133 mg/dL (70-99); HEMOLYSIS < 15 (0-50); Lipase 97 U/L (23-300); Potassium 4.1 mmol/L (3.4-5.1); Sodium 135 mmol/L (137-145); Total Protein 8.7 g/dL (6.3-8.2)
[2024-10-31] MEDS: SODIUM CHLORIDE 0.9% 1,000 ML 1000 ML IV (21:39)
[2024-10-31 21:50] LABS: Procalcitonin 0.108 ng/mL (<0.5)
--- NOTE | 2024-10-31 22:00 | ED.ABDPAIN ---
HPI - Abdominal Pain <Ricardo Nash DO - Last Filed: 11/01/24 03:07> General Chief Complaint: Abdominal Pain Stated Complaint: Drain Problem Time Seen by Provider: 10/31/24 21:31 Source: patient and family Mode of arrival: Wheelchair History of Present Illness HPI narrative: 64-year-old female with known staghorn calculi in the left with bilateral drains placed August 01 scheduled to have left nephrectomy on October 17 but since the kidney was attached to the colon apparently they did not want to do the surgery at this time. Patient noticed for the past 3 days she has had worsening left flank pain that has been coming more constant unsteady and noticed some discoloration in her drain. Denies fever chills body aches nausea vomiting diarrhea or constipation. She follows with urology at the [facility]. Other than what is stated 14 point review of system is negative Related Data Previous Rx's Medication Instructions Recorded oxycodone-acetaminophen 5 mg-325 1 tab PO Q6H PRN pain #14 tabs 08/26/23 mg tablet ciprofloxacin HCl 500 mg tablet 500 mg PO BID #20 tabs 09/28/24 cephalexin 500 mg capsule 500 mg PO BID #10 caps 10/01/24 cefdinir 300 mg capsule 300 mg PO Q12H #20 caps 10/03/24 Allergies Allergy/AdvReac Type Severity Reaction Status Date / Time No Known Drug Allergies Allergy Verified 08/26/23 11:37 Review of Systems <Ricardo Nash DO - Last Filed: 11/01/24 03:07> Review of Systems ROS Unobtainable: All systems reviewed & are unremarkable except as noted in HPI and below Patient History <Ricardo Nash DO - Last Filed: 11/01/24 03:07> Medical History Hyperlipidemia Hypertension Social History Smoking Status: Never smoker Smoking Status: Never smoker Exam <Ricardo Nash DO - Last Filed: 11/01/24 03:07> Narrative Exam Narrative: GENERAL: [64] year old patient appears stated age. Ill appearing, in mild distress. HEAD: Atraumatic. Normocephalic. EYES: Pupils equal round and reactive. Extraocular motions intact. No scleral icterus. No injection or drainage. ENT: Nose without bleeding, purulent drainage. Throat without erythema, tonsillar hypertrophy or exudate. Airway patent. NECK: Trachea midline. Non tender CARDIOVASCULAR: Tachycardic Regular rate and rhythm without murmurs, gallops, or rubs. RESPIRATORY: Clear to auscultation. Breath sounds equal bilaterally. No wheezes, rales, or rhonchi. 1 CAROLANN drain with no redness, warmth, drainage or bleeding surrounding drain site. Yellowish discolored fulid in the drain. GASTROINTESTINAL: Abdomen soft, mod TTP surrouding L CAROLANN drain with no redness, warmth, pus or bleeding surrounding drain site. Yellowish discolored fluid in the drain. EXTREMITIES: No edema or joint tenderness. BACK: Nontender without deformity or crepitance. No flank tenderness. NEURO: AOx3. SKIN: No rash or erythema of visible areas Initial Vital Signs Initial Vital Signs: Vital Signs Temperature 102.3 F H 10/31/24 20:56 Pulse Rate 117 H 10/31/24 20:56 Respiratory Rate 18 10/31/24 20:56 Blood Pressure 154/63 H 10/31/24 20:56 Pulse Oximetry 98 10/31/24 20:56 Oxygen Delivery Method Room Air 10/31/24 20:56 <Benita Akers, - Last Filed: 11/01/24 09:07> Initial Vital Signs Initial Vital Signs: Vital Signs Temperature 102.3 F H 10/31/24 20:56 Pulse Rate 117 H 10/31/24 20:56 Respiratory Rate 18 10/31/24 20:56 Blood Pressure 154/63 H 10/31/24 20:56 Pulse Oximetry 98 10/31/24 20:56 Oxygen Delivery Method Room Air 10/31/24 20:56 Course <Ricardo Nash, - Last Filed: 11/01/24 03:07> Orders Ordered: Ondansetron HCl (Ondansetron 4 Mg Odt) 4 mg SL NOW PRN PRN Reason: Nausea And Vomiting Discontinued Medications Acetaminophen (Acetaminophen 325 Mg Tablet) 975 mg PO NOW ONE Stop: 11/01/24 03:56 Last Admin: 11/01/24 04:06 Dose: 975 mg Documented By: CARMENZA Sodium Chloride (Normal Saline 0.9%) 1,000 mls @ 1,000 mls/hr IV BOLUS ONE Stop: 10/31/24 22:04 Last Infusion: 10/31/24 22:44 Dose: Infused Documented By: Admin: 10/31/24 21:39 Dose: 1,000 mls/hr Documented By: CARMENZA Lactated Ringer's (Lactated Ringers) 500 mls @ 1,000 mls/hr IV BOLUS ONE Stop: 10/31/24 22:30 Last Infusion: 10/31/24 23:39 Dose: Infused Documented By: Admin: 10/31/24 22:11 Dose: 1,000 mls/hr Documented By: CARMENZA Piperacillin Sod/Tazobactam (Sod 4.5 gm/ Sodium Chloride) 100 mls @ 200 mls/hr IV NOW ONE Stop: 10/31/24 22:02 Last Infusion: 10/31/24 23:40 Dose: Infused Documented By: Admin: 10/31/24 22:12 Dose: 200 mls/hr Documented By: CARMENZA Lactated Ringer's (Lactated Ringers) 500 mls @ 1,000 mls/hr IV BOLUS ONE Stop: 11/01/24 01:41 Last Infusion: 11/01/24 02:29 Dose: Infused Documented By: Admin: 11/01/24 01:20 Dose: 1,000 mls/hr Documented By: CARMENZA Lactated Ringer's (Lactated Ringers) 500 mls @ 1,000 mls/hr IV BOLUS ONE Stop: 11/01/24 04:24 Last Infusion: 11/01/24 05:25 Dose: Infused Documented By: Admin: 11/01/24 04:06 Dose: 1,000 mls/hr Documented By: CARMENZA Ceftriaxone Sodium 2,000 mg/ (Sodium Chloride) 100 mls @ 200 mls/hr IV NOW ONE Stop: 11/01/24 05:40 Last Infusion: 11/01/24 06:26 Dose: Infused Documented By: Admin: 11/01/24 05:49 Dose: 200 mls/hr Documented By: CARMENZA Piperacillin Sod/Tazobactam (Sod 4.5 gm/ Sodium Chloride) 100 mls @ 200 mls/hr IV NOW ONE Stop: 11/01/24 05:53 Last Infusion: 11/01/24 07:27 Dose: Infused Documented By: CARMENZA(2) Admin: 11/01/24 06:27 Dose: 200 mls/hr Documented By: CARMENZA Lactated Ringer's (Lactated Ringers) 1,000 mls @ 1,000 mls/hr IV BOLUS ONE Stop: 11/01/24 06:51 Last Infusion: 11/01/24 07:29 Dose: Infused Documented By: CARMENZA(2) Admin: 11/01/24 05:57 Dose: 1,000 mls/hr Documented By: CARMENZA Lactated Ringer's (Lactated Ringers) 1,000 mls @ 1,000 mls/hr IV BOLUS ONE Stop: 11/01/24 07:43 Last Infusion: 11/01/24 07:26 Dose: Infused Documented By: CARMENZA(2) Admin: 11/01/24 06:46 Dose: 1,000 mls/hr Documented By: CARMENZA Lactated Ringer's (Lactated Ringers) 500 mls @ 1,000 mls/hr IV BOLUS ONE Stop: 11/01/24 08:19 Last Infusion: 11/01/24 09:00 Dose: Infused Documented By: CARMENZA(2) Admin: 11/01/24 08:00 Dose: 1,000 mls/hr Documented By: CARMENZA(2) Ketorolac Tromethamine (Ketorolac 30 Mg/Ml Vial) 15 mg IV NOW ONE Stop: 11/01/24 08:59 Last Admin: 11/01/24 09:02 Dose: 15 mg Documented By: CARMENZA(2) Morphine Sulfate (Morphine 4 Mg/Ml Inj) 4 mg IV NOW ONE Stop: 10/31/24 22:04 Last Admin: 10/31/24 22:12 Dose: 4 mg Documented By: CARMENZA Morphine Sulfate (Morphine 4 Mg/Ml Inj) 4 mg IV NOW ONE Stop: 11/01/24 00:07 Last Admin: 11/01/24 00:09 Dose: 4 mg Documented By: CARMENZA Ondansetron HCl (Ondansetron 4 Mg/2 Ml Inj) 4 mg IV NOW PRN PRN Reason: Nausea And Vomiting Last Admin: 10/31/24 22:11 Dose: 4 mg Documented By: CARMENZA Vital Signs Vital signs: Vital Signs - 8 hr 11/01/24 01:30 11/01/24 02:00 11/01/24 02:28 Temperature Pulse Rate 113 H 112 H 114 H Respiratory Rate 18 Blood Pressure Pulse Oximetry 91 92 96 Oxygen Delivery Method Oxygen Flow Rate 11/01/24 02:28 11/01/24 02:30 11/01/24 03:00 Temperature Pulse Rate 113 H 107 H Respiratory Rate 18 Blood Pressure 128/58 L Pulse Oximetry 93 93 Oxygen Delivery Method Oxygen Flow Rate 11/01/24 03:52 11/01/24 03:52 11/01/24 03:56 Temperature 102.7 F H Pulse Rate 103 H Respiratory Rate 18 Blood Pressure 126/60 Pulse Oximetry 92 Oxygen Delivery Method Oxygen Flow Rate 11/01/24 04:00 11/01/24 04:09 11/01/24 04:09 Temperature Pulse Rate 103 H 107 H Respiratory Rate Blood Pressure 133/58 L Pulse Oximetry 94 Oxygen Delivery Method Oxygen Flow Rate 11/01/24 04:30 11/01/24 04:30 11/01/24 05:00 Temperature Pulse Rate 105 H 102 H Respiratory Rate Blood Pressure 105/51 L Pulse Oximetry 92 91 Oxygen Delivery Method Oxygen Flow Rate 11/01/24 05:00 11/01/24 05:30 11/01/24 05:30 Temperature Pulse Rate 99 H Respiratory Rate Blood Pressure 101/50 L 101/49 L Pulse Oximetry 91 Oxygen Delivery Method Oxygen Flow Rate 11/01/24 05:31 11/01/24 06:00 11/01/24 06:00 Temperature 100.5 F H Pulse Rate 93 H Respiratory Rate Blood Pressure 95/49 L Pulse Oximetry 92 Oxygen Delivery Method Oxygen Flow Rate 11/01/24 06:11 11/01/24 06:11 11/01/24 06:21 Temperature 100.6 F H Pulse Rate 106 H Respiratory Rate Blood Pressure 102/49 L Pulse Oximetry 91 Oxygen Delivery Method Oxygen Flow Rate 11/01/24 06:30 11/01/24 06:30 11/01/24 07:00 Temperature Pulse Rate 94 H Respiratory Rate Blood Pressure 100/49 L 99/50 L Pulse Oximetry 93 Oxygen Delivery Method Nasal Cannula Oxygen Flow Rate 2 11/01/24 07:00 11/01/24 07:30 11/01/24 07:30 Temperature Pulse Rate 83 84 Respiratory Rate Blood Pressure 85/50 L Pulse Oximetry 100 100 Oxygen Delivery Method Oxygen Flow Rate 11/01/24 07:43 11/01/24 07:43 11/01/24 07:45 Temperature 98.2 F Pulse Rate 90 Respiratory Rate Blood Pressure 93/44 L Pulse Oximetry 99 Oxygen Delivery Method Oxygen Flow Rate 11/01/24 08:00 11/01/24 08:00 11/01/24 08:30 Temperature Pulse Rate 95 H Respiratory Rate Blood Pressure 98/51 L 103/51 L Pulse Oximetry 93 Oxygen Delivery Method Oxygen Flow Rate 11/01/24 08:30 Temperature Pulse Rate 91 H Respiratory Rate Blood Pressure Pulse Oximetry 92 Oxygen Delivery Method Oxygen Flow Rate <Benita Akers, - Last Filed: 11/01/24 09:07> Orders Ordered: Ondansetron HCl (Ondansetron 4 Mg Odt) 4 mg SL NOW PRN PRN Reason: Nausea And Vomiting Discontinued Medications Acetaminophen (Acetaminophen 325 Mg Tablet) 975 mg PO NOW ONE Stop: 11/01/24 03:56 Last Admin: 11/01/24 04:06 Dose: 975 mg Documented By: CARMENZA Sodium Chloride (Normal Saline 0.9%) 1,000 mls @ 1,000 mls/hr IV BOLUS ONE Stop: 10/31/24 22:04 Last Infusion: 10/31/24 22:44 Dose: Infused Documented By: Admin: 10/31/24 21:39 Dose: 1,000 mls/hr Documented By: CARMENZA Lactated Ringer's (Lactated Ringers) 500 mls @ 1,000 mls/hr IV BOLUS ONE Stop: 10/31/24 22:30 Last Infusion: 10/31/24 23:39 Dose: Infused Documented By: Admin: 10/31/24 22:11 Dose: 1,000 mls/hr Documented By: CARMENZA Piperacillin Sod/Tazobactam (Sod 4.5 gm/ Sodium Chloride) 100 mls @ 200 mls/hr IV NOW ONE Stop: 10/31/24 22:02 Last Infusion: 10/31/24 23:40 Dose: Infused Documented By: Admin: 10/31/24 22:12 Dose: 200 mls/hr Documented By: CARMENZA Lactated Ringer's (Lactated Ringers) 500 mls @ 1,000 mls/hr IV BOLUS ONE Stop: 11/01/24 01:41 Last Infusion: 11/01/24 02:29 Dose: Infused Documented By: Admin: 11/01/24 01:20 Dose: 1,000 mls/hr Documented By: CARMENZA Lactated Ringer's (Lactated Ringers) 500 mls @ 1,000 mls/hr IV BOLUS ONE Stop: 11/01/24 04:24 Last Infusion: 11/01/24 05:25 Dose: Infused Documented By: Admin: 11/01/24 04:06 Dose: 1,000 mls/hr Documented By: CARMENZA Ceftriaxone Sodium 2,000 mg/ (Sodium Chloride) 100 mls @ 200 mls/hr IV NOW ONE Stop: 11/01/24 05:40 Last Infusion: 11/01/24 06:26 Dose: Infused Documented By: Admin: 11/01/24 05:49 Dose: 200 mls/hr Documented By: CARMENZA Piperacillin Sod/Tazobactam (Sod 4.5 gm/ Sodium Chloride) 100 mls @ 200 mls/hr IV NOW ONE Stop: 11/01/24 05:53 Last Infusion: 11/01/24 07:27 Dose: Infused Documented By: CARMENZA(2) Admin: 11/01/24 06:27 Dose: 200 mls/hr Documented By: CARMENZA Lactated Ringer's (Lactated Ringers) 1,000 mls @ 1,000 mls/hr IV BOLUS ONE Stop: 11/01/24 06:51 Last Infusion: 11/01/24 07:29 Dose: Infused Documented By: CARMENZA(2) Admin: 11/01/24 05:57 Dose: 1,000 mls/hr Documented By: CARMENZA Lactated Ringer's (Lactated Ringers) 1,000 mls @ 1,000 mls/hr IV BOLUS ONE Stop: 11/01/24 07:43 Last Infusion: 11/01/24 07:26 Dose: Infused Documented By: CARMENZA(2) Admin: 11/01/24 06:46 Dose: 1,000 mls/hr Documented By: CARMENZA Lactated Ringer's (Lactated Ringers) 500 mls @ 1,000 mls/hr IV BOLUS ONE Stop: 11/01/24 08:19 Last Infusion: 11/01/24 09:00 Dose: Infused Documented By: CARMENZA(2) Admin: 11/01/24 08:00 Dose: 1,000 mls/hr Documented By: CARMENZA(2) Ketorolac Tromethamine (Ketorolac 30 Mg/Ml Vial) 15 mg IV NOW ONE Stop: 11/01/24 08:59 Last Admin: 11/01/24 09:02 Dose: 15 mg Documented By: CARMENZA(2) Morphine Sulfate (Morphine 4 Mg/Ml Inj) 4 mg IV NOW ONE Stop: 10/31/24 22:04 Last Admin: 10/31/24 22:12 Dose: 4 mg Documented By: CARMENZA Morphine Sulfate (Morphine 4 Mg/Ml Inj) 4 mg IV NOW ONE Stop: 11/01/24 00:07 Last Admin: 11/01/24 00:09 Dose: 4 mg Documented By: CARMENZA Ondansetron HCl (Ondansetron 4 Mg/2 Ml Inj) 4 mg IV NOW PRN PRN Reason: Nausea And Vomiting Last Admin: 10/31/24 22:11 Dose: 4 mg Documented By: CARMENZA Vital Signs Vital signs: Vital Signs - 8 hr 11/01/24 01:30 11/01/24 02:00 11/01/24 02:28 Temperature Pulse Rate 113 H 112 H 114 H Respiratory Rate 18 Blood Pressure Pulse Oximetry 91 92 96 Oxygen Delivery Method Oxygen Flow Rate 11/01/24 02:28 11/01/24 02:30 11/01/24 03:00 Temperature Pulse Rate 113 H 107 H Respiratory Rate 18 Blood Pressure 128/58 L Pulse Oximetry 93 93 Oxygen Delivery Method Oxygen Flow Rate 11/01/24 03:52 11/01/24 03:52 11/01/24 03:56 Temperature 102.7 F H Pulse Rate 103 H Respiratory Rate 18 Blood Pressure 126/60 Pulse Oximetry 92 Oxygen Delivery Method Oxygen Flow Rate 11/01/24 04:00 11/01/24 04:09 11/01/24 04:09 Temperature Pulse Rate 103 H 107 H Respiratory Rate Blood Pressure 133/58 L Pulse Oximetry 94 Oxygen Delivery Method Oxygen Flow Rate 11/01/24 04:30 11/01/24 04:30 11/01/24 05:00 Temperature Pulse Rate 105 H 102 H Respiratory Rate Blood Pressure 105/51 L Pulse Oximetry 92 91 Oxygen Delivery Method Oxygen Flow Rate 11/01/24 05:00 11/01/24 05:30 11/01/24 05:30 Temperature Pulse Rate 99 H Respiratory Rate Blood Pressure 101/50 L 101/49 L Pulse Oximetry 91 Oxygen Delivery Method Oxygen Flow Rate 11/01/24 05:31 11/01/24 06:00 11/01/24 06:00 Temperature 100.5 F H Pulse Rate 93 H Respiratory Rate Blood Pressure 95/49 L Pulse Oximetry 92 Oxygen Delivery Method Oxygen Flow Rate 11/01/24 06:11 11/01/24 06:11 11/01/24 06:21 Temperature 100.6 F H Pulse Rate 106 H Respiratory Rate Blood Pressure 102/49 L Pulse Oximetry 91 Oxygen Delivery Method Oxygen Flow Rate 11/01/24 06:30 11/01/24 06:30 11/01/24 07:00 Temperature Pulse Rate 94 H Respiratory Rate Blood Pressure 100/49 L 99/50 L Pulse Oximetry 93 Oxygen Delivery Method Nasal Cannula Oxygen Flow Rate 2 11/01/24 07:00 11/01/24 07:30 11/01/24 07:30 Temperature Pulse Rate 83 84 Respiratory Rate Blood Pressure 85/50 L Pulse Oximetry 100 100 Oxygen Delivery Method Oxygen Flow Rate 11/01/24 07:43 11/01/24 07:43 11/01/24 07:45 Temperature 98.2 F Pulse Rate 90 Respiratory Rate Blood Pressure 93/44 L Pulse Oximetry 99 Oxygen Delivery Method Oxygen Flow Rate 11/01/24 08:00 11/01/24 08:00 11/01/24 08:30 Temperature Pulse Rate 95 H Respiratory Rate Blood Pressure 98/51 L 103/51 L Pulse Oximetry 93 Oxygen Delivery Method Oxygen Flow Rate 11/01/24 08:30 Temperature Pulse Rate 91 H Respiratory Rate Blood Pressure Pulse Oximetry 92 Oxygen Delivery Method Oxygen Flow Rate MDM - Abdominal Pain <Ricardo Nash, DO - Last Filed: 11/01/24 03:07> Lab Data 10/31/24 21:10 10/31/24 21:10 Labs: Lab Results 10/31/24 10/31/24 Range/Units 21:10 23:05 WBC 22.0 H (4.5-11.0) X10^3/uL RBC 3.79 L (4.0-5.2) X10^6/uL Hgb 10.2 L (12.0-16.0) g/dL Hct 30.6 L (36-46) % MCV 80.7 (80-100) fL MCH 26.8 (26-34) PG MCHC 33.2 (30-36) % RDW 14.9 H (11.6-14.8) % Plt Count 707 H (150-400) X10^3/uL Neut % (Auto) 87.7 H (50-75) % Lymph % (Auto) 5.7 L (25-40) % [place] % (Auto) 5.7 (3-14) % Eos % (Auto) 0.4 L (2-4) % Baso % (Auto) 0.5 (0-2) % Neut # (Auto) 94374 H (5653-4973) /uL Lymph # (Auto) 1300 (3378-5960) /uL [place] # (Auto) 1300 H (0-900) /uL Eos # (Auto) 100 (0-450) /uL Baso # (Auto) 100 (0-100) /uL PT 12.2 (9.4-12.5) SECONDS INR 1.1 (0.9-1.3) APTT 33 (25.1-36.5) SECONDS Sodium 135 L (137-145) mmol/L Potassium 4.1 (3.4-5.1) mmol/L Chloride 101 (98-107) mmol/L Carbon Dioxide 24 (22-32) mmol/L BUN 13 (7-17) mg/dL Creatinine 1.01 (0.52-1.04) mg/dL Estimated GFR > 60 (>60) mL/min BUN/Creatinine Ratio 12.9 (6-22) Glucose 133 H (70-99) mg/dL Lactate 1.1 (0.7-2.1) mmol/L Calcium 9.3 (8.4-10.2) mg/dL Total Bilirubin 0.4 (0.2-1.3) mg/dL AST 22 (14-36) IU/L ALT 18 (<35) IU/L Alkaline Phosphatase 107 (38-126) U/L Total Protein 8.7 H (6.3-8.2) g/dL Albumin 4.1 (3.5-5.0) g/dL Globulin 4.6 H (1.7-4.1) g/dL Albumin/Globulin Ratio 0.9 L (1.0-2.8) Lipase 97 (23-300) U/L Procalcitonin 0.108 (<0.5) ng/mL Urine Color Yellow Urine Appearance Sl cloudy Urine pH 5.5 (4.5-8.0) Ur Specific [place] 1.010 (1.000-1.035) Urine Protein Negative (Negative) Urine Glucose (UA) Negative (Negative) g/dL Urine Ketones Trace H (NEGATIVE) Urine Occult Blood 1+ H (Negative) Urine Nitrate Negative (Negative) Urine Bilirubin Negative (NEGATIVE) Urine Urobilinogen 0.2 (0.2) E.U./dL Ur Leukocyte Esterase 3+ H (NEGATIVE) Urine RBC 1-5/hpf (0-5/HPF) Urine WBC 30-100/hpf H (0-5/HPF) Ur Squamous Epith Cells 1-5 /hpf (0-5/HPF) Urine Bacteria None seen (None) Ur Culture Indicated? Specimen cultured Vol Urine Centrifuged 10ml (spun) Imaging Data CT scan - abdomen/pelvis: Radiologist's Impression: [address] [address] [address] Scan Report Signed Patient: Dannielle Chan MR#: [id number] : 1960 Acct:[id number] Age/Sex: 64 / F Date of Service: 10/31/24 Loc: ED Accession Number: [id number] Procedure: CT abdomen pelvis w con Ordering Provider: Ricardo Nash D.O. PROCEDURE: CT ABDOMEN PELVIS W CON INDICATIONS: abd pain/ kidney infection TECHNIQUE: After the administration of intravenous contrast, axial sections acquired from the lung bases to the pubic symphysis. Coronal and sagittal reformats were performed. For radiation dose reduction, the following was used: automated exposure control, adjustment of mA and/or kV according to patient size. COMPARISON: [facility], CT, CT ABDOMEN RENAL PROTOCOL, 09/24/2024, 11:51. [facility], CT, CT ABDOMEN PELVIS W CON, 09/28/2024, 14:52. FINDINGS: Image quality: Diagnostic. Lower Chest: Small opacity at the lingula is unchanged. ABDOMEN: Liver: No solid mass. Gallbladder: Possible small gallstone or thickening at the fundus. Unchanged appearance. Biliary ducts: No biliary dilation. Pancreas: No ductal dilation. Spleen: Size is within normal limits. Trace adjacent fluid. Small enhancing nodule in the left upper quadrant measuring 0.8 cm, (2/48), unchanged. This could represent a splenule. Adrenal Glands: No adrenal nodules. Kidneys and Ureters: Left staghorn calculus. Left percutaneous nephrostomy tube with the tip at the left renal pelvis. The 2nd perinephric pigtail drainage catheter is been removed. There is no significant left hydronephrosis. There is a small amount of gas within the left superior calyx, (2/47). The left renal enhancement is severely diminished. -Superior to the left kidney is a small collection containing gas measuring 2.3 x 1.3 x 1.1 cm, (2/46 and 50), similar. -Inferior lateral to the left kidney elongated fluid collection measuring 10.8 x 2.8 x 2.7 cm, ( and ), new. There is air within the collection. The collection tracks along the descending colon. The proximal left ureter is mildly dilated. No right hydronephrosis. Stomach and Bowel: There is stranding adjacent to the descending colon, (). Normal appendix. No small bowel obstruction. The stomach is within normal limits. Peritoneum: No abnormal intraperitoneal fluid. No free air. Ventral Wall: No significant ventral hernia. Abdominal Nodes: Prominent left retroperitoneal lymph nodes. Favor reactive etiology. Vessels: Aorta and inferior vena cava are normal in size. PELVIS: Pelvic Organs: Vertically oriented uterus. Bladder: No bladder wall thickening. Air in the urinary bladder. Pelvic Nodes: No enlarged lymph nodes. Miscellaneous: No inguinal hernias are seen. Bones: No aggressive osseous abnormality. IMPRESSION: 1. New poorly defined abscess tracking inferolateral to the left kidney measuring 10.8 cm in length. 2. Similar small collection superior to the left kidney measuring 2.3 cm. 3. Left xanthogranulomatous pyelonephritis. Left percutaneous nephrostomy tube. No significant left hydronephrosis. Small amount of gas within the collecting system. 4. Air within the urinary bladder. This could be iatrogenic or due to gas-forming organism. 5. Prominent left retroperitoneal lymph nodes. Favor reactive etiology. Dictated by: Yuan Ortega M.D. on 10/31/2024 at 23:26 ECG Data Interpretation: Sinus Tach HR 111 RI 126 QRS [address]-t wave change Change from 09/28/24 MDM Narrative Medical decision making narrative: All lab work vital signs nurse triage note medication list all imaging studies and all previous ER visits reviewed. Patient given a lactated ringer 1 L bolus and Zosyn 4.5 g IV x1 here. Was also given morphine 4 mg IV x2. Case was discussed with Dr. South urology on-call at [facility] who has graciously accepted patient for transfer she will need Interventional Radiology to drain the abscess and be transferred for further definitive care. Differential diagnosis includes sepsis, sirs, pyelonephritis, kidney stone, kidney infection, UTI. <Benita Akers, - Last Filed: 11/01/24 09:07> Lab Data Labs: Lab Results 10/31/24 10/31/24 Range/Units 21:10 23:05 WBC 22.0 H (4.5-11.0) X10^3/uL RBC 3.79 L (4.0-5.2) X10^6/uL Hgb 10.2 L (12.0-16.0) g/dL Hct 30.6 L (36-46) % MCV 80.7 (80-100) fL MCH 26.8 (26-34) PG MCHC 33.2 (30-36) % RDW 14.9 H (11.6-14.8) % Plt Count 707 H (150-400) X10^3/uL Neut % (Auto) 87.7 H (50-75) % Lymph % (Auto) 5.7 L (25-40) % [place] % (Auto) 5.7 (3-14) % Eos % (Auto) 0.4 L (2-4) % Baso % (Auto) 0.5 (0-2) % Neut # (Auto) 57134 H (2082-0856) /uL Lymph # (Auto) 1300 (4167-5564) /uL [place] # (Auto) 1300 H (0-900) /uL Eos # (Auto) 100 (0-450) /uL Baso # (Auto) 100 (0-100) /uL PT 12.2 (9.4-12.5) SECONDS INR 1.1 (0.9-1.3) APTT 33 (25.1-36.5) SECONDS Sodium 135 L (137-145) mmol/L Potassium 4.1 (3.4-5.1) mmol/L Chloride 101 (98-107) mmol/L Carbon Dioxide 24 (22-32) mmol/L BUN 13 (7-17) mg/dL Creatinine 1.01 (0.52-1.04) mg/dL Estimated GFR > 60 (>60) mL/min BUN/Creatinine Ratio 12.9 (6-22) Glucose 133 H (70-99) mg/dL Lactate 1.1 (0.7-2.1) mmol/L Calcium 9.3 (8.4-10.2) mg/dL Total Bilirubin 0.4 (0.2-1.3) mg/dL AST 22 (14-36) IU/L ALT 18 (<35) IU/L Alkaline Phosphatase 107 (38-126) U/L Total Protein 8.7 H (6.3-8.2) g/dL Albumin 4.1 (3.5-5.0) g/dL Globulin 4.6 H (1.7-4.1) g/dL Albumin/Globulin Ratio 0.9 L (1.0-2.8) Lipase 97 (23-300) U/L Procalcitonin 0.108 (<0.5) ng/mL Urine Color Yellow Urine Appearance Sl cloudy Urine pH 5.5 (4.5-8.0) Ur Specific [place] 1.010 (1.000-1.035) Urine Protein Negative (Negative) Urine Glucose (UA) Negative (Negative) g/dL Urine Ketones Trace H (NEGATIVE) Urine Occult Blood 1+ H (Negative) Urine Nitrate Negative (Negative) Urine Bilirubin Negative (NEGATIVE) Urine Urobilinogen 0.2 (0.2) E.U./dL Ur Leukocyte Esterase 3+ H (NEGATIVE) Urine RBC 1-5/hpf (0-5/HPF) Urine WBC 30-100/hpf H (0-5/HPF) Ur Squamous Epith Cells 1-5 /hpf (0-5/HPF) Urine Bacteria None seen (None) Ur Culture Indicated? Specimen cultured Vol Urine Centrifuged 10ml (spun) MDM Narrative Medical decision making narrative: All lab work vital signs nurse triage note medication list all imaging studies and all previous ER visits reviewed. Patient given a lactated ringer 1 L bolus and Zosyn 4.5 g IV x1 here. Was also given morphine 4 mg IV x2. Case was discussed with Dr. South urology on-call at [facility] who has graciously accepted patient for transfer she will need Interventional Radiology to drain the abscess and be transferred for further definitive care. Differential diagnosis includes sepsis, sirs, pyelonephritis, kidney stone, kidney infection, UTI. Dr. Akers: Patient signed out to myself by Dr. Nash. Patient had completed proximally 3 L of fluid since 9:00 p.m. last night, she was had Zofran, Zosyn, Rocephin and pain medication as well as acetaminophen here in the department. Patient's temperature did increase, heart rate has improved from earlier this morning but pressures has been lower. Patient reportedly had episode of O2 dependence while asleep. Patient has been up to the bedside commode. Patient's pressure has a little bit lower here, was given another bolus of lactated Ringer's and we will re-evaluate and if necessary start norepinephrine. Patient was seen and evaluated by myself. She was had some purulent drainage from around the drain site itself although some still is coming out through the drain. She states it some increased pain in her flank fevers that is started last night. She denies any dizziness accept when she had morphine. No chest pain or shortness of breath, no nausea or vomiting no other GI or urinary symptoms reported. She was was 7 appointment Monday with her team what sounds like a tele visit. She does note she had recently been on antibiotics orally for 4 days. Did reach out to to make sure what kind of bed patient was going to and if they would like to adjust. Patient has not required norepinephrine does seem to be fluid responsive map is 75 with a systolic of 103/51 after 500 bolus. But has had an overall downward trend. 09Spoke with Dr. Addison the accepting physician/urologist reviewed that blood pressure has been trending downward she does seem to be fluid responsive after 500 bolus we will continue with 250 mL/hour. Does not appear to require pressors at this time but was concerned as she has had decrease in blood pressure although she has been afebrile with the improvement of her heart rate overall. He feels comfortable with this they would like for us to proceed with transport. Discharge Plan Departure Patient Disposition: [facility] Clinical Impression: Abscess of left kidney, Acute pyelonephritis Prescriptions: No Action oxycodone-acetaminophen 5-325 mg tablet 1 tab PO Q6H PRN (Reason: pain) Qty: 14 0RF ciprofloxacin HCl 500 mg tablet 500 mg PO BID Qty: 20 0RF cephalexin 500 mg capsule 500 mg PO BID Qty: 10 0RF cefdinir 300 mg capsule 300 mg PO Q12H Qty: 20 0RF Referrals: Sagrario Sprague ARNP [Primary Care Provider] -
[2024-10-31] MEDS: ONDANSETRON 4 MG/2 ML INJ IV (22:11)
[2024-10-31] MEDS: LACTATED RINGERS 500 ML 1000 ML IV (22:11)
[2024-10-31] MEDS: PIPERACILLIN/TAZO 4.5 GM in SODIUM CHLORIDE 0.9% 100 ML IV (22:12)
[2024-10-31] MEDS: MORPHINE 4 MG/ML INJ IV (22:12)
[2024-10-31 23:17] LABS: Appearance Urine UA SL CLOUDY; Bilirubin Urine UA NEGATIVE (NEGATIVE); Color Urine UA YELLOW; Glucose Urine UA NEGATIVE (Negative); Ketones Urine UA TRACE (NEGATIVE); Leukocyte Esterase Urine UA 3+ (NEGATIVE); Nitrite Urine UA NEGATIVE (Negative); Occult Blood Urine UA 1+ (Negative); Protein Urine UA NEGATIVE (Negative); Urobilinogen Urine UA 0.2 E.U./dL (0.2)
[2024-10-31 23:20] LABS: pH Urine UA 5.5 (4.5-8.0)
[2024-10-31 23:29] LABS: Bacteria Urine None Seen; Culture Indicated Urine Specimen Cultured; RBC Urine 1-5/HPF (0-5/HPF); Squamous Epithelial Cell Urine 1-5 /HPF (0-5/HPF); Urine Volume 10mL (spun); WBC Urine 30-100/HPF (0-5/HPF)
[2024-11-01] VITALS (26 sets, daily range): BP systolic 85–133; BP diastolic 44–60; PULSE 83–114; RESP 18; TEMP 36.8–39.3; O2SAT 91–100
[2024-11-01] MEDS: MORPHINE 4 MG/ML INJ IV (00:09)
[2024-11-01] MEDS: LACTATED RINGERS 500 ML 1000 ML IV ×3 (01:20→08:00)
--- NOTE | 2024-11-01 03:56 | PC.NURSE ---
WALL TAPER note: Patient called and expressed need to go to the bathroom. Patient was incredibly weak, and was leaning back in bed when trying to get up. Suggested patient get the pure wick external catheter because she seemed so weak. Patient refused. Patient was very warm to the touch.Patient was a 1 person assist to the bathroom, but she complained it was so far away. I got her to the bathroom and she leaned back into the toilet. I gave patient time on the toilet. I stayed at the door. When I checked in with the patient she said she couldn't get up. I helped her get up and as we were walking she took about 10 steps and was incredibly weak. Patient wouldn't open her eyes when walking. I asked a coworker for help walking patient back to her room. Patient became a 2 person assist walking. Patient was able to get back into bed but kept her eyes closed, and said she was weak. I did a stat said of vitals and an oral temp. Patient's temperature is 102.7. Alerted Dr. Nash and Sherrell Salgado RN.
[2024-11-01] MEDS: ACETAMINOPHEN 325 MG TABLET 975 MG PO (04:06)
[2024-11-01] MEDS: cefTRIAXone 2,000 MG in SODIUM CHLORIDE 0.9% 100 ML 200 MG IV (05:49)
--- NOTE | 2024-11-01 05:54 | PC.NURSE ---
Dr Nash notified of soft BP's and pt condition. Orders received.
[2024-11-01] MEDS: LACTATED RINGERS 1,000 ML 1000 ML IV ×2 (05:57→06:46)
[2024-11-01] MEDS: PIPERACILLIN/TAZO 4.5 GM in SODIUM CHLORIDE 0.9% 100 ML IV (06:27)
--- NOTE | 2024-11-01 08:00 | PC.NURSE ---
Pt used bedside commode; output documented. Pt states pain is under control. Thick drainage noted from nephrostomy tube. BP running 80s/90s systolic MAP 63-65. MD aware. Per MD give 500cc LR bolus and juice. Continue to monitor pressures.
[2024-11-01] MEDS: KETOROLAC 30 MG/ML VIAL 15 MG IV (09:02)
--- NOTE | 2024-11-01 09:11 | PC.NURSE ---
Attempted to give report to [facility]. Stated they will call back. [facility] at bedside
--- NOTE | 2024-11-01 09:26 | PC.NURSE ---
Report given to Chema MARIEE at [facility]
--- NOTE | 2024-11-03 15:14 | PC.NURSE ---
Spoke with Dr. Nolasco at , urology resident. Provided with urine culture and blood culture results with sensitivities.
== END 2024-11-01 09:26 | disposition short-term general hospital (02) ==
PROVIDERS: Family Medicine; Emergency Provider Emergency Medicine; PCP Nurse Practitioner
DX: N20.0 Calculus of kidney (principal); N10 Acute pyelonephritis; Z96.0 Presence of urogenital implants
CPT/HCPCS: 36415; 71045; 74177; 80053; 81001; 83605; 83690; 84145; 85025; 85610; 85730; 87040; 87077; 87086; 87186; 93005; 96361; 96365; 96367; 96375; 96376; 99285; J0696; J1885; J2270; J2405; J2543; Q9967

== ENCOUNTER → 2025-03-14 10:04 | Outpatient (CLI) | payer OTHER, SELFPAY ==
--- NOTE | 2025-03-14 10:08 | DI.CT.S_ITS ---
PROCEDURE: CT ABDOMEN PELVIS W CON INDICATIONS: Xanthogranulomatous pyelonephritis TECHNIQUE: After the administration of intravenous contrast, axial sections acquired from the lung bases to the pubic symphysis. Coronal and sagittal reformats were performed. For radiation dose reduction, the following was used: automated exposure control, adjustment of mA and/or kV according to patient size. COMPARISON: [facility], CT, CT ABDOMEN PELVIS W CON, 10/31/2024, 22:50. FINDINGS: Image quality: Diagnostic Lower chest: Lingular atelectasis. No pleural effusions. Small amount of contrast in the distal esophagus usually from dysmotility or reflux. Liver: Unremarkable Gallbladder and biliary system: CBD measures 7 mm, upper limit of normal. Cholelithiasis. Pancreas: No ductal dilation Spleen: Nonenlarged Adrenals: No discrete nodules Kidneys: Right kidney is unremarkable. No hydronephrosis or solid mass. There is a percutaneous nephrostomy tube on the left. Staghorn calculus is seen throughout the left kidney diffuse peripelvic and ureteral hyperemia as before. Decreased, heterogeneous enhancement of the left kidney. Pigtail catheter adjacent to the left lower pole is present. There is no significant perinephric fluid collection. Small phlegmon is seen at the splenorenal recess measuring 1 cm (2/37) Small amount of calyceal gas, likely iatrogenic. Vessels and lymph nodes: The main portal vein appears patent. No abdominal aortic aneurysm. Moderate aortoiliac atherosclerotic calcifications. Similar enlarged left retroperitoneal lymph nodes. Bowel and peritoneum: Moderate colonic fecal loading. No bowel obstruction. No drainable abscess or ascites. Body wall: Small fat containing umbilical hernia Pelvis: Bladder is unremarkable, under distended. Unremarkable reproductive organs on limited CT evaluation Bones: No aggressive appearing osseous abnormality. There are degenerative changes. IMPRESSION: Left XGP. Staghorn calculus and heterogeneous enhancement again seen. Percutaneous nephrostomy tube in place, without high-grade collecting system dilation. There is also a pigtail catheter adjacent to the left inferolateral cortex. A small 1 cm phlegmon is seen at the splenorenal recess. No other perinephric fluid collections identified Enlarged left retroperitoneal lymph nodes, likely reactive. Mildly dilated CBD incidentally noted measuring 7 mm. Correlate LFTs. Other findings above. Dictated by: Pardeep Collazo M.D. on 03/14/2025 at 12:53 Approved by: Pardeep Collazo M.D. on 03/14/2025 at 12:58
[2025-03-14 11:02] LABS: Estimated Glomerular Filt Rate 42 mL/min (>60)
[2025-03-14 11:18] LABS: Add Manual Diff / Slide Review NO; Hematocrit 35.3 % (36-46); Hemoglobin 12.1 g/dL (12.0-16.0); Lymphocytes Absolute Auto 1000 /uL (1100-4500); Mean Corpuscular HGB Conc 34.2 % (30-36); Mean Corpuscular Hemoglobin 28.5 PG (26-34); Mean Corpuscular Volume 83.5 fL (80-100); Platelet Count 283 X10^3/uL (150-400)
[2025-03-14 11:35] LABS: Blood Urea Nitrogen 21 mg/dL (7-17); Calcium 9.7 mg/dL (8.4-10.2); Carbon Dioxide 27 mmol/L (22-32); Chloride 98 mmol/L (98-107); Estimated Glomerular Filt Rate 41 mL/min (>60); Glucose 123 mg/dL (70-99); HEMOLYSIS < 15 (0-50); Potassium 4.2 mmol/L (3.4-5.1); Sodium 134 mmol/L (137-145)
== END ==
PROVIDERS: Radiology Diagnostic Radiology; Urology; PCP Nurse Practitioner
DX: N11.8 Other chronic tubulo-interstitial nephritis (principal); K83.8 Other specified diseases of biliary tract; K80.20 Calculus of gallbladder without cholecystitis without obstruction; R59.0 Localized enlarged lymph nodes; N20.0 Calculus of kidney; K42.9 Umbilical hernia without obstruction or gangrene; Z93.6 Other artificial openings of urinary tract status
CPT/HCPCS: 36415; 74177; 80048; 82565; 85025; Q9967

== ENCOUNTER → 2025-03-22 10:01 | Outpatient (CLI) | payer OTHER, SELFPAY ==
[2025-03-22 11:31] LABS: Add Manual Diff / Slide Review NO; Hematocrit 34.8 % (36-46); Hemoglobin 11.7 g/dL (12.0-16.0); Lymphocytes Absolute Auto 1100 /uL (1100-4500); Mean Corpuscular HGB Conc 33.6 % (30-36); Mean Corpuscular Hemoglobin 28.0 PG (26-34); Mean Corpuscular Volume 83.6 fL (80-100); Platelet Count 344 X10^3/uL (150-400)
[2025-03-22 11:52] LABS: Blood Urea Nitrogen 18 mg/dL (7-17); Calcium 9.6 mg/dL (8.4-10.2); Carbon Dioxide 23 mmol/L (22-32); Chloride 100 mmol/L (98-107); Estimated Glomerular Filt Rate 36 mL/min (>60); Glucose 128 mg/dL (70-99); HEMOLYSIS < 15 (0-50); Potassium 3.9 mmol/L (3.4-5.1); Sodium 136 mmol/L (137-145)
== END ==
PROVIDERS: PCP Nurse Practitioner; Referring Provider Urology; Visit Provider Urology
DX: N11.8 Other chronic tubulo-interstitial nephritis (principal)
CPT/HCPCS: 36415; 80048; 85025; 86850; 86900; 86901